=== PATIENT | male | born 1985 | race Caucasian/White ===

== ENCOUNTER 2021-01-20 06:00 | Emergency (ER) | payer OTHER ==
--- NOTE | 2021-01-20 06:42 | EDM.PDOC ---
<Valdo Gill - Last Filed: 01/20/21 07:51> ED HPI GENERAL MEDICAL PROBLEM - General Chief Complaint: Cardiovascular Problem Stated Complaint: CHEST PAIN Time Seen by Provider: 01/20/21 06:36 - History of Present Illness INITIAL COMMENTS - FREE TEXT/NARRATIVE: 35-year-old male presents the emergency room with chest pain. This awoke him this morning probably an hour before arrival. He describes it as muscle twitches over his left breast. These last anywhere from 1 to a few seconds and they seem to come in groups. He has no deep chest discomfort breathing difficulties or shortness of breath. Patient denies any other complaints at this time. He is not having any associated nausea vomiting diaphoresis. - Related Data Allergies Allergy/AdvReac Type Severity Reaction Status Date / Time No Known Allergies Allergy Verified 01/20/21 06:15 Home Meds: Home Meds Ketamine HCl 100 mg PO DAILY PRN 01/20/21 [History] buPROPion HCL [Wellbutrin Xl] 150 mg PO DAILY 01/20/21 [History] hydrOXYzine HCL [hydrOXYzine] 50 mg PO BEDTIME 01/20/21 [History] Past Medical History Psychiatric History: Reports: Anxiety, Depression Social & Family History - Tobacco Use Tobacco Use Status *Q: Never Tobacco User Second Hand Smoke Exposure: No - Recreational Drug Use Recreational Drug Use: No ED ROS GENERAL - Review of Systems Review Of Systems: See Below Constitutional: Reports: No Symptoms HEENT: Reports: No Symptoms Respiratory: Reports: No Symptoms Cardiovascular: Reports: Other (See HPI) Endocrine: Reports: No Symptoms GI/Abdominal: Reports: No Symptoms : Reports: No Symptoms Musculoskeletal: Reports: No Symptoms ED EXAM, GENERAL - Physical Exam Exam: See Below Exam Limited By: No Limitations General Appearance: Alert, No Apparent Distress Neck: Normal Inspection, Supple, Non-Tender, Full Range of Motion. No: Lymphadenopathy (L), Lymphadenopathy (R), Tender Lateral, Tender Midline Respiratory/Chest: No Respiratory Distress, Lungs Clear, Normal Breath Sounds, Other (Palpation of the tender area, I cannot feel any fasciculations however he says this is the area where he notices it.) Cardiovascular: Regular Rate, Rhythm, No Edema, No Murmur GI/Abdominal: Normal Bowel Sounds, Soft, Non-Tender Departure - Departure Disposition: Home, Self-Care 01 Clinical Impression: Muscle fasciculation Referrals: PCP,None [Primary Care Provider] - Forms: ED Department Discharge Additional Instructions: Evaluation in the emergency room this morning primarily carried out by in regards to development of fasciculations of the muscle overlying the left chest wall. Clinically it appears to be within the pectoralis minor muscle which underlies the pectoralis major muscle of your chest wall. Lab work was completed to make sure there was no electrolyte abnormality such as low magnesium levels etc. All labs including cardiac markers for heart attack came back in the normal range. ECG and chest x-ray were normal as well. Fasciculations or muscle twitches can occur from overuse or under use activities. As you indicated you started doing push-ups about 3 days ago which is likely the cause of the fasciculations. They will last a day or 2 and then go away on their own. No treatment is usually indicated. Sepsis Event Note (ED) - Evaluation Sepsis Screening Result: No Definite Risk <Ajit Marshall - Last Filed: 01/20/21 08:27> ED HPI GENERAL MEDICAL PROBLEM - History of Present Illness Onset: Today, Sudden Onset Date: 01/20/21 Onset Time: 05:00 Duration: Minutes:, Intermittent, Waxing/Waning Location: Reports: Chest (Left chest wall) Course - Vital Signs Last Recorded V/S: Last Vital Signs Temp 36.1 C 01/20/21 06:10 Pulse 74 01/20/21 06:10 Resp 16 01/20/21 06:10 BP 118/81 01/20/21 06:10 Pulse Ox 99 01/20/21 06:10 - Orders/Labs/Meds Orders: Active Orders 24 hr Category Date Time Status EKG 12 Lead [EKG Documentation Completion] [RC] STAT Care 01/20/21 06:34 Active Labs: Laboratory Tests 01/20/21 01/20/21 Range/Units 07:30 07:30 WBC 5.94 (4.23-9.07) K/mm3 RBC 4.81 (4.63-6.08) M/mm3 Hgb 14.7 (13.7-17.5) gm/dl Hct 43.1 (40.1-51.0) % MCV 89.6 (79.0-92.2) fl MCH 30.6 (25.7-32.2) pg MCHC 34.1 (32.2-35.5) g/dl RDW Std Deviation 43.3 (35.1-43.9) fL Plt Count 221 (163-337) K/mm3 MPV 10.3 (9.4-12.3) fl Neut % (Auto) 49.5 (34.0-67.9) % Lymph % (Auto) 35.4 (21.8-53.1) % Holt % (Auto) 10.9 (5.3-12.2) % Eos % (Auto) 3.4 (0.8-7.0) Baso % (Auto) 0.5 (0.1-1.2) % Neut # (Auto) 2.94 (1.78-5.38) K/mm3 Lymph # (Auto) 2.10 (1.32-3.57) K/mm3 Holt # (Auto) 0.65 (0.30-0.82) K/mm3 Eos # (Auto) 0.20 (0.04-0.54) K/mm3 Baso # (Auto) 0.03 (0.01-0.08) K/mm3 Sodium 144 (136-145) mEq/L Potassium 3.7 (3.5-5.1) mEq/L Chloride 108 H (98-107) mEq/L Carbon Dioxide 25 (21-32) mEq/L Anion Gap 14.7 (5-15) BUN 21 H (7-18) mg/dL Creatinine 1.1 (0.7-1.3) mg/dL Est Cr Clr Drug Dosing 100.78 mL/min Estimated GFR (MDRD) > 60 (>60) mL/min BUN/Creatinine Ratio 19.1 H (14-18) Glucose 86 (70-99) mg/dL Calcium 8.7 (8.5-10.1) mg/dL Magnesium 2.1 (1.8-2.4) mg/dL Total Bilirubin 0.3 (0.2-1.0) mg/dL AST 15 (15-37) U/L ALT 20 (16-63) U/L Alkaline Phosphatase 65 (46-116) U/L Troponin I < 0.017 (0.00-0.056) ng/mL Total Protein 6.7 (6.4-8.2) g/dl Albumin 3.7 (3.4-5.0) g/dl Globulin 3.0 gm/dL Albumin/Globulin Ratio 1.2 (1-2) - Re-Assessments/Exams Free Text/Narrative Re-Assessment/Exam: 01/20/21 08:16 care has been assumed from Dr. Gill as it is change of shift. Labs reveal a normal white count at 5.94. Differential is 49.5% neutrophils. Hemoglobin is 14.7 with hematocrit of 43.1 platelet count is 221,000. Sodium 144 with a potassium of 3.7. Chloride 108 with a bicarb of 25. Anion gap is normal at 14.7. BUN is 21 with a creatinine of 1.1 and a GFR greater than 60. Glucose is 86. Calcium is 8.7. Magnesium is 2.1. Liver function is normal. Troponin I is less than 0.017 total protein is 6.7 albumin fraction 3.7. Portable chest x-ray revealed a normal-sized heart and mediastinum. Lungs are clear with no acute parenchymal changes. No acute osseous abnormality appreciated. Departure - Departure Time of Disposition: 08:25 Reason for Transfer *Q: Other Condition: Fair Sepsis Event Note (ED) - Focused Exam Vital Signs: Vital Signs Temp Pulse Resp BP Pulse Ox 01/20/21 06:10 36.1 C 74 16 118/81 99
--- NOTE | 2021-01-20 08:15 | CR ---
Chest: Frontal view of the chest was obtained utilizing portable technique. Comparison: No prior chest imaging is available. Heart size and mediastinum are normal. Lungs are clear with no acute parenchymal change. No acute osseous abnormality is appreciated. Impression: 1. Nothing acute is appreciated on portable chest x-ray. Diagnostic code #1
== END 2021-01-20 08:44 | disposition home or self-care (01) ==
LOC: JD.ED 06:00
DX: R25.3 Fasciculation (principal); Z79.899 Other long term (current) drug therapy
CPT/HCPCS: 36415; 71045; 71045-26; 80053; 83735; 84484; 85025; 93005; 99282; 99285-25